=== PATIENT | male | born 1975 | race Caucasian/White ===

== ENCOUNTER 2018-11-05 16:25 | Emergency (ER) | payer SELFPAY ==
--- NOTE | 2018-11-05 16:54 | ERPHSYRPT ---
- History of Present Illness Time Seen by Provider: 11/05/18 16:40 Source: patient Exam Limitations: no limitations Patient Subjective Stated Complaint: PT states "I had an ultrasound on my left testicle today at 2 pm and they just called me and told me to get to the ED because I have a testicular torsion and I need surgery." Triage Nursing Assessment: Pt alert and oriented X 3, skin pwd. PT ambualtes slowly, able to speak in clear full sentences. pt in no apparent respiratory distress. Pt states he had chicken strips and cheese curds at 1500, drank root beer. Physician History: 43-year-old white male arrives with complaint of left testicular pain since October 18, 2018. According to patient he has been having left testicular pain since October 18, 2018 he apparently had seen is a local physician was thought to have epididymitis and was placed on antibiotics he states that he had initial large amount of swelling on the left testicle. He states he continues to have pain in the left testicle so he presented to local nurse practitioner's who ordered a testicular ultrasound which was performed this afternoon at 2:00. Ultrasound is remarkable for impression 1. Unusual left testicular sonogram with subtle heterogeneity and patchy areas of color-flow rule out partial torsion or infarct. 2. Negative right testicular sonogram. Patient without any other complaints she did state that his pain radiated up into his abdomen. Past medical history includes anxiety past surgical history includes kidney stone extraction cyst on his neck and hemorrhoids Timing/Duration: other (symptoms since October 18) Modifying Factors: Improves With: other (patient had been treated with antibiotics) Associated Symptoms: abdominal pain, other (left testicular pain), No nausea, No vomiting, No shortness of breath, No heartburn, No diaphoresis, No cough, No chills, No chest pain, No fever, No headaches, No loss of appetite, No malaise, No rash, No syncope, No seizure, No weakness Allergies/Adverse Reactions: No Known Drug Allergies Allergy (Unverified 11/05/18 16:36) Home Medications: Alprazolam [Xanax] 0.5 mg PO BID 11/05/18 [History] Hx Tetanus, Diphtheria Vaccination/Date Given: No Hx Influenza Vaccination/Date Given: No Hx Pneumococcal Vaccination/Date Given: No Immunizations Up to Date: Yes - Review of Systems Constitutional: No Fever, No Chills Eyes: No Symptoms Ears, Nose, & Throat: No Symptoms Respiratory: No Cough, No Dyspnea Cardiac: No Chest Pain, No Edema, No Syncope Abdominal/Gastrointestinal: Abdominal Pain, No Nausea, No Vomiting, No Diarrhea , No Constipation, No Hematemesis, No Hematochezia, No Melena, No Dysphagia, No Appetite Changes Genitourinary Symptoms: Testicle Pain (left testicular pain, swelling 18 days ago) Musculoskeletal: No Back Pain, No Neck Pain Skin: No Rash Neurological: No Dizziness, No Focal Weakness, No Sensory Changes Psychological: No Symptoms Endocrine: No Symptoms All Other Systems: Reviewed and Negative - Past Medical History Pertinent Past Medical History: Yes Psycho-Social History: Anxiety - Past Surgical History Past Surgical History: Yes Other Surgical History: kidney stone extraction. cyst on throat. hemrhoid - Social History Smoking Status: Current every day smoker How long have you smoked: years Exposure to second hand smoke: Yes Drug Use: none Patient Lives Alone: No - Nursing Vital Signs Nursing Vital Signs: Initial Vital Signs Temperature 99.6 F 11/05/18 16:29 Pulse Rate 70 11/05/18 16:29 Respiratory Rate 16 11/05/18 16:29 Blood Pressure 147/87 11/05/18 16:29 O2 Sat by Pulse Oximetry 97 11/05/18 16:29 Pain Scale Pain Intensity 4 - Physical Exam General Appearance: mild distress Eye Exam: PERRL/EOMI, eyes nml inspection Ears, Nose, Throat Exam: normal ENT inspection, TMs normal, pharynx normal, moist mucous membranes Neck Exam: normal inspection, non-tender, supple, full range of motion Respiratory Exam: normal breath sounds, lungs clear, No respiratory distress Cardiovascular Exam: regular rate/rhythm, normal heart sounds, normal peripheral pulses, capillary refill <2 sec Gastrointestinal/Abdomen Exam: soft, normal bowel sounds, No tenderness, No distention, No mass, No guarding, No ecchymosis, No pulsatile mass Male Genitalia Exam: other (testicles descended bilaterally, mild tenderness with palpation left testicle no masses normal male genitalia otherwise) Back Exam: normal inspection, normal range of motion, No CVA tenderness, No vertebral tenderness Extremity Exam: normal inspection, normal range of motion, pelvis stable Neurologic Exam: alert, oriented x 3, cooperative, 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, normal mood/affect, nml cerebellar function, nml station & gait, sensation nml, No motor deficits Skin Exam: normal color, warm, dry, No rash Lymphatic Exam: No adenopathy SpO2 Interpretation: normal (97%) SpO2: 97 Ordered Tests: Active Orders 24 hr Category Date Time Status CULTURE,URINE Stat Lab 11/05/18 17:32 Received UA W/RFX UR CULTURE Stat Lab 11/05/18 17:32 Completed Medication Summary Discontinued Medications Generic Name Dose Route Start Last Admin Trade Name Demario PRN Reason Stop Dose Admin Levofloxacin/Dextrose Confirm 11/05/18 17:38 Levofloxacin 500mg/100ml D5w Administered 11/05/18 17:39 Dose 500 mg in 100 mls @ ud IV .STK-MED ONE Levofloxacin 500 mg 11/05/18 17:27 11/05/18 17:42 Levofloxacin 500 Mg Tablet PO 11/05/18 17:28 500 mg STAT ONE Administration Levofloxacin Confirm 11/05/18 17:40 Levofloxacin 500 Mg Tablet Administered 11/05/18 17:41 Dose 500 mg .ROUTE .STK-MED ONE Lab/Rad Data: Laboratory Results 11/05/18 Range/Units 17:32 Urine Color YELLOW (YELLOW) Urine Appearance CLOUDY (CLEAR) Urine pH 7.0 (5-6) Ur Specific [place] 1.010 (1.005-1.025) Urine Protein NEGATIVE (Negative) Urine Ketones NEGATIVE (NEGATIVE) Urine Blood NEGATIVE (0-5) Tayo/ul Urine Nitrite NEGATIVE (NEGATIVE) Urine Bilirubin NEGATIVE (NEGATIVE) Urine Urobilinogen 2 (0-1) mg/dL Ur Leukocyte Esterase NEGATIVE (NEGATIVE) Urine RBC (Auto) 0-2 (0-2) /HPF Amorphous Crystals FEW (NEGATIVE) /HPF Urine Culture Reflexed YES (NO) Urine Glucose NEGATIVE (NEGATIVE) mg/dL - Progress Progress: improved Progress Note: 11/05/18 17:06 This is a 43-year-old white male who has complaint of pain in his left testicle which initially began as pain and swelling which began on October 18, 2018. He states that he had initially been treated by his family doctor for epididymitis and that the swelling went down but he continued to have pain in the left testicle. He apparently presented to local nurse practitioner who ordered a testicular ultrasound. Testicular ultrasound which was performed today at 2:00 this afternoon with impression: 1. Unusual left testicle sonogram was subtle heterogeneity and patchy areas of color-flow rule out partial torsion or infarct. 2. Negative right testicle sonogram On examination patient's testicles both appear to be descended he has some mild tenderness with palpation in the left testicle. He has otherwise normal external male genitalia. I've discussed the patient's case with , urologist he recommends that the patient be placed on Levaquin 500 mg orally daily. And he recommends that the patient contact his office and follow-up with him. He feels that he is unlikely the patient has torsion and the patient's sonogram findings of the testicle are likely the result of severe epididymitis. . Will go ahead and place patient on Levaquin as recommended have patient drink plenty of fluids will check patient's urine and be sure to obtain a culture. - Departure Time of Disposition: 17:55 Departure Disposition: Home Clinical Impression: Left testicular pain, abnormal testicular ultrasound, History of recent epididymitis Condition: Fair Critical Care Time: No Referrals: CORDELL JONES [Primary Care Provider] - Instructions: Epididymitis (DC) Additional Instructions: Return home. Levaquin 500 mg orally daily. Follow-up with Kasye Leone November 07 at 10 AM. Plenty of fluids. Return for acute distress or for severe symptoms. [place] as prescribed for pain . Prescriptions: Hydrocodone/APAP 5-325 Tab^^^ [[place] 5-325 Tablet^^^] 1 tab PO Q4HPRN PRN #12 tablet MDD 6 PRN Reason: Pain Levofloxacin [Levaquin] 500 mg PO DAILY #7 tablet
[2018-11-05] MEDS ORDERED: Levofloxacin 500 MG Tablet PO ONE (17:27)
[2018-11-05 17:33] VITALS: BP 138/79; PULSE 54; O2SAT 97
[2018-11-05] MEDS ORDERED: Levofloxacin 500MG/100ML D5W 0 MG/0 ML BAG IV ONE (17:38)
[2018-11-05] MEDS ORDERED: Levofloxacin 500 MG Tablet ONE (17:40)
[2018-11-05 17:48] LABS: Amourphous Crystal FEW /HPF (NEGATIVE); Appearance CLOUDY (CLEAR); Bilirubin NEGATIVE (NEGATIVE); Blood NEGATIVE Ery/ul (0-5); Glucose NEGATIVE (NEGATIVE); Ketones NEGATIVE (NEGATIVE); Leukocyte Esterase NEGATIVE (NEGATIVE); Nitrite NEGATIVE (NEGATIVE); Protein,Urine Dip NEGATIVE (Negative); RBC 0-2 /HPF (0-2); Urobilinogen 2 mg/dL (0-1)
== END 2018-11-05 18:01 | disposition home or self-care (01) ==
LOC: ED 16:25
DX: N50.812 Left testicular pain (principal); R93.812 Abnormal radiologic findings on diagnostic imaging of left testicle; N45.1 Epididymitis
CPT/HCPCS: 81001; 87086; 99283; J1956; A9270-GY

== ENCOUNTER 2021-02-04 11:08 | Day surgery (SDC) | payer BC ==
--- NOTE | 2021-01-29 13:33 | HP ---
DATE OF SURGERY: 02/04/2021 HISTORY OF PRESENT ILLNESS: The patient is a 45 year-old male presented with complaints of some pain at the periumbilical site. He reports there is a bulge and thinks it is getting bigger. It appears that he has chronic umbilical hernia incarcerated. It cannot be reduced on exam today. PAST MEDICAL HISTORY: Depression, anxiety, diabetes. PAST SURGICAL HISTORY: Hemorrhoidectomy. Kidney stone removal. Oral surgery. ALLERGIES: NKDA. MEDICATIONS: Testosterone, Xanax, Viagra, depression medicine. FAMILY HISTORY: None. SOCIAL HISTORY: Smokes a pack a day. Denies alcohol. REVIEW OF SYSTEMS: CONSTITUTIONAL: Denies fever or chills. CHEST: Denies shortness of breath. CVS: Denies chest pain. ABDOMEN: Reported abdominal pain at umbilical hernia site. INTEGUMENTARY: Negative. PHYSICAL EXAMINATION: GENERAL: No acute distress. CHEST: Nonlabored. No shortness of breath. CVS: Regular rate and rhythm. ABDOMEN: Soft, tender at the umbilical hernia site. EXTREMITIES: No edema. NEUROLOGIC: Alert. PSYCHIATRIC: Appropriate. IMPRESSION: Chronically incarcerated umbilical hernia. PLAN: Umbilical hernia repair possible mesh with Dr. Rc Briceno. As dictated by Bryanna Hendricks NP.
[2021-02-04] MEDS ORDERED: Sensorcaine 0.25% 10 ML IJ ONE ×2 (11:09)
[2021-02-04] MEDS ORDERED: Lactated Ringers 1,000 ML IV ONE ×2 (11:09)
[2021-02-04] MEDS ORDERED: KEFZOL 1 GM IJ ONE ×2 (11:09)
[2021-02-04] MEDS ORDERED: CEFAZOLIN 2 GM-D5W BAG** 2 GM/50 ML ML IV SCH (11:30)
[2021-02-04] MEDS ORDERED: Lactated Ringers 1,000 ML IV SCH (11:30)
[2021-02-04] MEDS ORDERED: Xylocaine-Mpf 2% 5 Ml Vial ONE (12:25)
[2021-02-04] MEDS ORDERED: Zofran 4 MG/2 ML VIAL ONE (12:25)
[2021-02-04] MEDS ORDERED: TORAdol 30 mg Injection ONE (12:25)
[2021-02-04] MEDS ORDERED: Zemuron 100 MG/10 ML ONE ×2 (12:25→12:43)
[2021-02-04] MEDS ORDERED: Decadron 4 MG INJ ONE (12:25)
[2021-02-04] MEDS ORDERED: DIPRIVAN 200 MG/20 ML IV ONE ×2 (12:25→12:43)
[2021-02-04] MEDS ORDERED: BRIDION 200MG/2ML IV ONE (12:25)
[2021-02-04] MEDS ORDERED: SUBLIMAZE 100 MCG/2 ML ONE ×2 (12:26→13:33)
[2021-02-04 14:48] VITALS: BP 127/76; PULSE 64; O2SAT 94
--- NOTE | 2021-02-05 11:40 | OP ---
SURGERY DATE/TIME: 02/04/2021 1225 PREOPERATIVE DIAGNOSIS: Umbilical hernia. POSTOPERATIVE DIAGNOSIS: Umbilical hernia. PROCEDURE: Primary umbilical herniorrhaphy. SURGEON: Rc Briceno M.D. ANESTHESIA: General. COMPLICATIONS: None. CONDITION: Stable. INDICATION: The patient with symptomatic umbilical hernia. DESCRIPTION OF PROCEDURE: Taken to surgery. General anesthetic. Routine prep and drape. Time out was performed. It was incarcerated. It was reduced. The defect inch. The skin was extremely thin, actually had a small hole that was closed with 4-0 Vicryl. With this in mind with it being a little questionable size-palencia, it could go either way either closed or mesh. I think with the condition of the skin overlying this, I think we are better off not placing mesh in this today. It was pulled together and approximated with six simple interrupted sutures #0 Prolene which were all placed, pulled up, tied down, knots everted except for last one. Reinforced with two figure-of-8 of 0 Vicryl. Skin closed with 4-0 Vicryl and Steri-Strips, compressive umbilical dressing. The patient tolerated the procedure satisfactorily.
== END 2021-02-04 15:00 | disposition home or self-care (01) ==
LOC: SDC 11:08 → EDSTATUS 11:09 → SDC 15:00
PROVIDERS: ATTEND Surgery
DX: K42.9 Umbilical hernia without obstruction or gangrene (principal)
CPT/HCPCS: J0690; J1100; J1885; J2405; J2704; J3010; L0625

== ENCOUNTER 2024-08-15 08:57 | Day surgery (SDC) | payer BC ==
--- NOTE | 2024-08-14 12:58 | HP ---
HISTORY OF PRESENT ILLNESS: Patient is a 49-year-old male, presents with some nausea and unintentional weight loss. He does have a neuroendocrine tumor, myeloproliferative neoplasm that he sees Dr. Ruiz for. He is on a chemo pill. He is on prednisone. He started some immunotherapy. He had nausea, vomiting, weight loss and lost 30 pounds. He did gain back 10 when he switched to a different chemo pill. He has never been scoped. He does not see any blood in the stool. History of hep C resolved. He says he had a recent CAT scan that was negative. PAST MEDICAL HISTORY: Neuroendocrine tumor, BPH, kidney neuropathy, hep C. HOME MEDICATIONS: Torsemide, Xanax, paroxetine, hydroxyurea, prednisone, dronabinol, Zofran, topiramate, thyroid levothyroxine, tamsulosin, vitamin B, potassium, iron, sildenafil, albuterol. ALLERGIES: None reported. PAST SURGICAL HISTORY: Hemorrhoids, hernia repair, kidney stone removal, neck surgery, cystectomy. SOCIAL HISTORY: Current smoker. FAMILY HISTORY: None reported. REVIEW OF SYSTEMS: CONSTITUTIONAL: Denies fever or chills. CHEST: Denies shortness of breath. CARDIOVASCULAR: Denies chest pain. ABDOMEN: Denies abdominal pain. PHYSICAL EXAMINATION: GENERAL: No acute distress. CARDIOVASCULAR: Regular rate and rhythm. RESPIRATORY: Nonlabored. No shortness of breath. ABDOMEN: Soft. ASSESSMENT: Nausea, unintentional weight loss, screening. PLAN: EGD and colonoscopy with Dr. Rc Briceno. This report was dictated for Dr. Briceno by Bryanna Hendricks NP.
[2024-08-15] MEDS ORDERED: DIPRIVAN 200 MG/20 ML IV ONE ×2 (11:21→11:32)
[2024-08-15] MEDS ORDERED: Xylocaine-Mpf 2% 5 Ml Vial ONE (11:21)
[2024-08-15] MEDS ORDERED: Versed 2 MG/2 ML Injection ONE (11:21)
[2024-08-15 11:48] VITALS: TEMP 98.5
[2024-08-15 11:50] VITALS: RESP 16
[2024-08-15 12:04] VITALS: BP 137/90; PULSE 66; O2SAT 98
--- NOTE | 2024-08-19 09:05 | OP ---
SURGERY DATE/TIME: 08/15/2024 [id number] PREOPERATIVE DIAGNOSES: 1) Nausea and a history of neuroendocrine tumor. 2) Screening colonoscopy. Patient has not had a colonoscopy; he is 49. POSTOPERATIVE DIAGNOSES: 1) Esophagogastroduodenoscopy findings: Grade 2/4 Gastroesophageal reflux disease, mild gastritis. A cold biopsy of the gastritis was taken. 2) Colonoscopic examination was normal. PROCEDURE: Esophagogastroduodenoscopy and colonoscopy. SURGEON: Rc Briceno MD ANESTHESIA: General. COMPLICATIONS: None. CONDITION: Stable. DESCRIPTION OF PROCEDURE AND FINDINGS: Patient was taken to endoscopy. Left lateral decubitus position. Scope introduced. Pharyngoesophageal junction normal. Esophagus normal, EG junction. Rim of esophagitis: A 1 cm rim of esophagitis grade 2. No hiatal hernia. Fundus, body, antrum very light gastritis. Biopsy of the antrum. Pylorus normal. Duodenal bulb normal. Second portion of the duodenum normal. We are well-aware that he has a neuroendocrine tumor and this area is an area of major concern. First and second portions of the duodenum were well visualized. There was no suggestion of any submucosal lesions from the mucosa at all in these areas. The scope was withdrawn. Anal digital examination satisfactory. Scope advanced to the cecum. Base of the cecum, appendiceal orifice was photographed. Ileocecal valve normal. Base of the cecum normal. Ascending, hepatic, transverse, splenic, descending, sigmoid, rectum, anus normal examination today. Findings discussed with in waiting room.
== END 2024-08-15 12:08 | disposition home or self-care (01) ==
LOC: SDC 08:57
PROVIDERS: ATTEND Surgery
DX: Z12.11 Encounter for screening for malignant neoplasm of colon (principal); R11.2 Nausea with vomiting, unspecified; Z85.89 Personal history of malignant neoplasm of other organs and systems; K21.9 Gastro-esophageal reflux disease without esophagitis; K29.70 Gastritis, unspecified, without bleeding
CPT/HCPCS: J2250; J2704